=== PATIENT | male | born 1955 | race Caucasian/White ===

== ENCOUNTER 2017-09-27 08:10 | Emergency (ER) | payer SELFPAY ==
[~2017-09-27] VITALS: Ht 175.3 cm; Wt 97.0 kg
[~2017-09-27 08:10] MED LIST: LISI-357 PO; OMEP20CA5 PO; PROM25SU8 PO
[2017-09-27 08:14] VITALS: BP 205/110; PULSE 95; RESP 16; TEMP 97.9; O2SAT 98
[2017-09-27 08:45] VITALS: BP 189/103; PULSE 89; RESP 20; O2SAT 98
[2017-09-27 08:50] VITALS: O2SAT 98
[2017-09-27] MEDS ORDERED: FAMOTIDINE 20 MG/2 ML VIAL IV PUSH ONE (09:00)
[2017-09-27] MEDS ORDERED: methylPREDNISolone SOD SUCC 125 MG/2 ML VIAL IV PUSH ONE (09:00)
[2017-09-27] MEDS ORDERED: PROCHLORPERAZINE INJ 10 MG/2 ML VIAL IV PUSH ONE (09:00)
[2017-09-27] MEDS ORDERED: SODIUM CHLORIDE 0.9% FLUSH 10 ML FLUSH IV FLUSH PRN (09:00)
[2017-09-27] MEDS ORDERED: diphenhydrAMINE HCL 50 MG/ML VIAL IVP ONE (09:00)
[2017-09-27 09:07] LABS: AUTOMATED NEUTROPHIL # 9.5 TH/MM3 (1.8-7.7); BASOPHIL # 0.1 TH/MM3 (0-0.2); BASOPHIL % 0.9 % (0.0-2.0); EOSINOPHIL % 0.1 % (0.0-4.0); HEMATOCRIT 51.8 % (39.0-51.0); HEMOGLOBIN 17.4 GM/DL (13.0-17.0); LYMPH % 7.8 % (9.0-44.0); LYMPHOCYTE # 0.8 TH/MM3 (1.0-4.8); MEAN CELL VOLUME 95.6 FL (80.0-100.0); MEAN CORPUSCULAR HGB CONC 33.5 % (32.0-36.0); MEAN PLATELET VOLUME 7.7 FL (7.0-11.0); MONO % 1.7 % (0.0-8.0); MONOCYTE # 0.2 TH/MM3 (0-0.9); NEUT % 89.5 % (16.0-70.0); PLATELET COUNT 357 TH/MM3 (150-450); RED BLOOD COUNT 5.42 MIL/MM3 (4.50-5.90); RED CELL DISTRIBUTION WIDTH 12.6 % (11.6-17.2); WHITE BLOOD COUNT 10.6 TH/MM3 (4.0-11.0)
--- NOTE | 2017-09-27 09:10 | PD ---
HPI Chief Complaint: Allergic/Adverse Reaction Time Seen by Provider: 08:39 Travel History International Travel<30 days: No Contact w/Intl Traveler<30days: No Traveled to known affect area: No History of Present Illness HPI Patient presents to the emergency department complaining of allergic reaction to an [id number] weight loss medication. He took it last night at around 730 in his face began to turn red. He then had a couple of vodka and tonic shots and started vomiting. Reports nausea and vomiting (last episode minutes prior to ER arrival). He denies chest pain, fever, chills, shortness of breath , facial tongue swelling, abdominal pain, back pain, hematuria, itching, and is not taking medication for his blood pressure. States that he had been on blood pressure medication but they took him off because his blood pressure was controlled a few years ago. [facility] Past Medical History Hypertension: Yes Social History Alcohol Use: Yes Tobacco Use: No Substance Use: No Allergies-Medications (Allergen,Severity, Reaction): Uncoded Allergies: hydroxcut (Allergy, Severe, n/v-rash, 09/27/17) Reported Meds & Prescriptions Reported Meds & Active Scripts Active Ranitidine (Ranitidine HCl) 150 Mg Tab 150 Mg PO BID 5 Days Prednisone 20 Mg Tab 40 Mg PO DAILY 5 Days Take 40 mg (2 tablets) daily for 5 days Review of Systems Except as stated in HPI: all other systems reviewed are Neg Physical Exam Narrative GENERAL: No acute distress peer SKIN: Focused skin assessment warm/dry. Erythematous face HEAD: Atraumatic. Normocephalic. EYES: Pupils equal and round. No scleral icterus. No injection or drainage. ENT: No nasal bleeding or discharge. Mucous membranes pink and moist. NECK: Trachea midline. No JVD. CARDIOVASCULAR: Regular rate and rhythm. No murmur appreciated. RESPIRATORY: No accessory muscle use. Clear to auscultation. Breath sounds equal bilaterally. GASTROINTESTINAL: Abdomen soft, non-tender, nondistended. Hepatic and splenic margins not palpable. MUSCULOSKELETAL: No obvious deformities. No clubbing. No cyanosis. No edema. NEUROLOGICAL: Awake and alert. No obvious cranial nerve deficits. Motor grossly within normal limits. Normal speech. PSYCHIATRIC: Appropriate mood and affect; insight and judgment normal. Data Data Last Documented VS Vital Signs Date Time Temp Pulse Resp B/P (MAP) Pulse Ox O2 Delivery O2 Flow Rate FiO2 09/27/17 09:13 92 18 166/103 (124) 97 Room Air 09/27/17 08:14 97.9 Orders Orders Complete Blood Count With Diff (09/27/17 08:48) Comprehensive Metabolic Panel (09/27/17 08:48) Ecg Monitoring (09/27/17 08:48) Iv Access Insert/Monitor (09/27/17 08:48) Oximetry (09/27/17 08:48) Diphenhydramine Inj (Benadryl Inj) (09/27/17 09:00) Methylprednisolone So Succ Inj (Solumedr (09/27/17 09:00) Famotidine Inj (Pepcid Inj) (09/27/17 09:00) Sodium Chloride 0.9% Flush (Ns Flush) (09/27/17 09:00) Prochlorperazine Inj (Compazine Inj) (09/27/17 09:00) B-Type Natriuretic Peptide (09/27/17 08:48) Ckmb (Isoenzyme) Profile (09/27/17 08:48) Prothrombin Time / Inr (Pt) (09/27/17 08:48) Act Partial Throm Time (Ptt) (09/27/17 08:48) Troponin I (09/27/17 08:48) Chest, Single Ap (09/27/17 08:48) Urinalysis - C+S If Indicated (09/27/17 08:48) CKMB (09/27/17 09:00) CKMB% (09/27/17 09:00) Lipase (09/27/17 09:55) Sodium Chlor 0.9% 250 Ml Inj (Ns 250 Ml (09/27/17 10:15) Electrocardiogram (09/27/17 10:06) Aspirin (Aspirin) (09/27/17 10:30) Labs Laboratory Tests Test 09/27/17 09:00 09/27/17 10:10 White Blood Count 10.6 TH/MM3 Red Blood Count 5.42 MIL/MM3 Hemoglobin 17.4 GM/DL Hematocrit 51.8 % Mean Corpuscular Volume 95.6 FL Mean Corpuscular Hemoglobin 32.0 PG Mean Corpuscular Hemoglobin Concent 33.5 % Red Cell Distribution Width 12.6 % Platelet Count 357 TH/MM3 Mean Platelet Volume 7.7 FL Neutrophils (%) (Auto) 89.5 % Lymphocytes (%) (Auto) 7.8 % Monocytes (%) (Auto) 1.7 % Eosinophils (%) (Auto) 0.1 % Basophils (%) (Auto) 0.9 % Neutrophils # (Auto) 9.5 TH/MM3 Lymphocytes # (Auto) 0.8 TH/MM3 Monocytes # (Auto) 0.2 TH/MM3 Eosinophils # (Auto) 0.0 TH/MM3 Basophils # (Auto) 0.1 TH/MM3 CBC Comment DIFF FINAL Differential Comment Prothrombin Time 10.4 SEC Prothromb Time International Ratio 1.0 RATIO Activated Partial Thromboplast Time 26.7 SEC Blood Urea Nitrogen 22 MG/DL Creatinine 1.40 MG/DL Random Glucose 171 MG/DL Total Protein 8.1 GM/DL Albumin 4.5 GM/DL Calcium Level 9.5 MG/DL Alkaline Phosphatase 68 U/L Aspartate Amino Transf (AST/SGOT) 14 U/L Alanine Aminotransferase (ALT/SGPT) 27 U/L Total Bilirubin 1.3 MG/DL Sodium Level 143 MEQ/L Potassium Level 3.8 MEQ/L Chloride Level 112 MEQ/L Carbon Dioxide Level 19.3 MEQ/L Anion Gap 12 MEQ/L Estimat Glomerular Filtration Rate 51 ML/MIN Total Creatine Kinase 118 U/L Creatine Kinase MB 1.0 NG/ML Troponin I LESS THAN 0.02 NG/ML B-Type Natriuretic Peptide 26 PG/ML Lipase 153 U/L Urine Collection Type CLEAN CATCH Urine Color YELLOW Urine Turbidity SL CLOUDY Urine pH 7.0 Urine Specific [place] 1.020 Urine Protein 100 mg/dL Urine Glucose (UA) NEG mg/dL Urine Ketones 40 mg/dL Urine Occult Blood NEG Urine Nitrite NEG Urine Bilirubin NEG Urine Urobilinogen 0.2 MG/DL Urine Leukocyte Esterase NEG Urine RBC 0-3 /hpf Urine Squamous Epithelial Cells 0-5 /hpf Urine Amorphous Sediment MOD Microscopic Urinalysis Comment CULT NOT INDICATED Urine Collection Time 1010 MDM Medical Decision Making Medical Screen Exam Complete: Yes Emergency Medical Condition: Yes Interpretation(s) ECG: Sinus rhythm, rate 81, left axis deviation, LVH T-wave inversion in lead III, aVF, V4 through V6, ST elevation in V2, ST depression in 3 and aVF Labs: Elevated hemoglobin/ hematocrit/BUN/creatinine glucose/T bili; UA- elevated ketones and protein Last Impressions Chest X-Ray 09/27/17 0884 Signed Impressions: CONCLUSION: No acute cardiopulmonary disease. Differential Diagnosis Pancreatitis, gastritis, drug reaction, allergic reaction, HTN emergency/urgency Narrative Course Patient presents emergency department complaining of allergic reaction. Patient placed on a gambling monitor, IV access obtained, the patient given 20 mg IV Pepcid, Benadryl 25 mg IV,methylprednisolone 125 mg IV, and Compazine 10 mg IV. 1003: Repeat BP 166/94. Patient reports feeling better. 1026: Patient was extremely hypertensive at 205/110 upon ER arrival. His blood pressure decreased on its own to 166/94, his EKG does show concerning changes which were not on previous. He denies chest pain, but will give ASA 325mg po and obs for serial enzymes and ECG, cards consult/cardiac testing, BP monitoring. 1030: Patient is signing out AGAINST MEDICAL ADVICE. He said he has a head cold in a house, [place] but he cannot stay today. He was advised of the concern for his heart, early EKG changes and hypertension he is competent to make medical decision and does not want to stay. States he has a "leave right now." Will give him medication for allergic reaction and referral to jury consultant ge[employer] operations manager. Wrote prescriptiosn but patient left before getting them and left before getting Dr. Castanon, jury consultant geothermal operations manager information. Charge nurse attempted to lloyd patient to give his medication. AMA: The risks of leaving against medical advice without further evaluation treatment were discussed with the patient. These risks include cardiac dysfunction, cardiac dysrhythmia, possible heart attack, possible stroke or . The patient indicated understanding of these risks and appeared to have the capacity to make this decision. Diagnosis Primary Impression: Allergic reaction Qualified Codes: T78.40XA - Allergy, unspecified, initial encounter Additional Impression: Hypertension Qualified Codes: I10 - Essential (primary) hypertension Referrals: Gerry Castanon MD Med/Other Pt SpecificInfo: Prescription(s) given Scripts Ranitidine (Ranitidine) 150 Mg Tab 150 MG PO BID for Heartburn Management for 5 Days, #10 TAB 0 Refills Prov: Sharda Clements MD 09/27/17 Prednisone (Prednisone) 20 Mg Tab 40 MG PO DAILY for 5 Days, #10 TAB 0 Refills Take 40 mg (2 tablets) daily for 5 days Prov: Sharda Clements MD 09/27/17 Disposition: 07 AGAINST MEDICAL ADVICE Condition: Fair (ECG changes, HTN, patient leaving AMA) Sharda Clements MD Sep 27, 2017 09:10
[2017-09-27 09:13] VITALS: BP 166/103; PULSE 92; RESP 18; O2SAT 97
[2017-09-27 09:13] LABS: CHLORIDE 112 MEQ/L (98-107); SODIUM (NA) 143 MEQ/L (136-145)
[2017-09-27 09:17] LABS: ALBUMIN 4.5 GM/DL (3.4-5.0); CALCIUM 9.5 MG/DL (8.5-10.1)
[2017-09-27 09:18] LABS: BICARBONATE 19.3 MEQ/L (21.0-32.0); BLOOD UREA NITROGEN 22 MG/DL (7-18); GLUCOSE,RANDOM 171 MG/DL (74-106)
--- NOTE | 2017-09-27 09:18 | RADRPT ---
EXAM DATE: 09/27/2017 9:15 AM EDT AGE/SEX: 61 years / Male INDICATIONS: Short of breath,vomiting CLINICAL DATA: This is the patient's initial encounter. Patient reports that signs and symptoms have been present for 1 day and indicates a pain score of 0/10. MEDICAL/SURGICAL HISTORY: None. None. COMPARISON: No prior exams available for comparison. FINDINGS: A single AP view of the chest demonstrates the lungs to be symmetrically aerated without evidence of mass, infiltrate or effusion. The cardiomediastinal contours are unremarkable. Osseous structures a re intact. CONCLUSION: No acute cardiopulmonary disease. Electronically signed by: Eyad Camacho MD 09/27/2017 9:16 AM EDT
[2017-09-27 09:21] LABS: ALT (GPT) 27 U/L (12-78); AST (GOT) 14 U/L (15-37); GLOMERULAR FILTRATION RATE 51 ML/MIN (>89)
[2017-09-27 09:22] LABS: TOTAL BILIRUBIN ADULT 1.3 MG/DL (0.2-1.0); TOTAL PROTEIN 8.1 GM/DL (6.4-8.2)
[2017-09-27 09:23] LABS: PROTHROMBIN TIME - PATIENT 10.4 SEC (9.8-11.6)
[2017-09-27 09:24] LABS: ALKALINE PHOSPHATASE 68 U/L (45-117)
[2017-09-27 09:26] LABS: TROPONIN I LESS THAN 0.02 NG/ML (0.02-0.05)
[2017-09-27] MEDS ORDERED: SODIUM CHLOR 0.9% 250 ML INJ 250 ML IV ONE (10:15)
[2017-09-27 10:19] LABS: BLOOD, URINE NEG (NEG); GLUCOSE,URINE NEG (NEG); KETONE, URINE 40 mg/dL (NEG); NITRITE,URINE NEG (NEG); URINE COLOR YELLOW (YELLW/STRAW); URINE LEUKOCYTE ESTERASE NEG (NEG)
[2017-09-27 10:24] LABS: BILIRUBIN, URINE NEG (NEG)
[2017-09-27 10:26] LABS: AMORPHOUS SEDIMENT, URINE MOD; RBC, URINE 0-3 /hpf (0-3); SQUAMOUS EPITHELIAL CELL URINE 0-5 /hpf (0-5)
[2017-09-27] MEDS ORDERED: ASPIRIN 325 MG TAB PO ONE (10:30)
[2017-09-27] MEDS ORDERED: RANI150T PO (10:36)
[2017-09-27] MEDS ORDERED: PRED20 PO (10:36)
--- NOTE | 2017-09-27 14:32 | EKG ---
Date Performed: 09/27/2017 Time Performed: 10:13:51 PTAGE: 61 years EKG: Normal Sinus rhythm Possible left ventricular hypertrophy with nonspecific ST-T wave changes Only slight variation in th e nonspecific ST-T wave changes when compared to the prior tracing. ABNORMAL ECG PREVIOUS TRACING : 08/12/2014 18.19 DOCTOR: Rigo Carbajal Interpretating Date/Time 09/27/2017 14:30:45
== END 2017-09-27 10:40 | disposition left against medical advice (07) ==
LOC: PHED 08:10
DX: T50.901A Poisoning by unspecified drugs, medicaments and biological substances, accidental (unintentional), initial encounter (principal); I10 Essential (primary) hypertension; R11.2 Nausea with vomiting, unspecified; R94.31 Abnormal electrocardiogram [ECG] [EKG]
CPT/HCPCS: 71045; 80053; 81001; 82550; 82552; 83690; 83880; 84484; 85025; 85610; 85730; 93005; 96374; 96375; 99285; J0780; J1200; J2930; J7050